=== PATIENT | female | born 1985 | race Caucasian/White ===

== ENCOUNTER → 2024-09-12 | Outpatient (CLI) | payer SELFPAY, OTHER ==
--- NOTE | 2024-09-12 18:34 | CT_ITS ---
EXAM: BRAIN/HEAD WITHOUT CONTRAST CLINICAL HISTORY: Pain COMPARISON: None. TECHNIQUE: Noncontrast images of the head with multiplanar reconstructions. Dose reduction techniques were used including intermediate exposure control (AEC),iterative reconstruction technique, and/or mA and/or KV dose adjustments based on patient's size. FINDINGS: CT HEAD FINDINGS: No acute intracranial hemorrhage, mass, mass effect, midline shift or pathologic extra-axial fluid collection. No hydrocephalus. Age- appropriate cerebral volume and white matter. Visualized paranasal sinuses and mastoid air cells are clear. The calvarium is grossly intact. CT/Brain/Head without Contrast IMPRESSION: No CT evidence of acute intracranial pathology. Reading [facility]
== END | disposition home or self-care (01) ==
LOC: CT 10-30 14:03
PROVIDERS: PCP Family Medicine; Referring Provider Surgery Plastic and Reconstructive Surgery; Visit Provider Surgery Plastic and Reconstructive Surgery
DX: D16.9 Benign neoplasm of bone and articular cartilage, unspecified (principal)
CPT/HCPCS: 70450

== ENCOUNTER 2024-09-29 12:55 | Emergency (ER) | payer OTHER, SELFPAY ==
[2024-09-29 12:56] VITALS: BP 119/80; PULSE 102; RESP 16; TEMP 36.7; O2SAT 100; BMI 28.1
[2024-09-29] MEDS: Famotidine 200 MG/20 ML MDV 20 MG in 0.9% Normal Saline (Pres. free 8 ML 300 MG IV (15:44)
[2024-09-29] MEDS: Ondansetron 4 MG/2 ML Vial IV (15:44)
[2024-09-29 15:46] LABS: Bacteria 0 SEEN /hpf (None Seen)
[2024-09-29 15:47] VITALS: BP 103/73; PULSE 75; RESP 16; TEMP 37.4; O2SAT 97
[2024-09-29 15:47] LABS: Absolute Lymphocyte Count 1.31 X10^3/uL (0.83-4.51); Absolute Neutrophil Count 5.4 X10^3/uL (2.0-7.7); Basophil# 0.05 X10^3/uL; Basophil% 0.7 % (0-1); Eosinophil# 0.02 X10^3/uL; Eosinophils% 0.3 % (0-5); Hematocrit 41.2 % (37-47); Hemoglobin 13.8 g/dL (12.0-15.0); Lymphocyte # 1.31 X10^3/ul (0.83-4.51); Mean Corp Hgb Conc 33.5 g/dL (32-36); Mean Corpuscular Hgb 27.9 pg (27.0-32.0); Mean Corpuscular Volume 83.4 fL (81-99); Mean Platelet Vol. 8.9 fl (6.2-12.0); Monocyte# 0.43 X10^3/uL; Monocyte% 5.9 % (0-10); NRBC Flagged by Analyzer 0 % (0-5); Neutrophil # 5.43 X10^3/uL (2.7-7.7); Neutrophil % 74.7 % (47-70); Platelet Count 290 K/mm3 (150-450); RBC Distribution Width CV 12.4 % (11.6-14.6); RBC Distribution Width SD 37.3 fl (35.1-43.9); Red Blood Count 4.94 M/mm3 (4.2-5.4); White Blood Count 7.3 K/mm3 (4.4-11.0)
[2024-09-29] MEDS: Lidocaine 2% Viscous15 ML UDC 15 ML PO (15:49)
[2024-09-29] MEDS: Mag Hydrox/Al Hydrox/Simeth 30 ML UDC PO (15:49)
[2024-09-29 15:57] LABS: Color, Urine Yellow (Yellow); Glucose, Dipstick Normal (Normal); Leukocyte Esterase-Dipstick Negative /ul (Negative); Nitrite-Dipstick Negative (Negative); Occult Blood-Urine 10 /ul (Negative); Protein-Dipstick 30 mg/dl (Negative); Specific Gravity, Urine 1.025 (1.002-1.030); Urine Bilirubin Dipstick Negative (Negative); Urine Clarity Clear (Clear); Urine Urobilinogen Normal (Normal)
[2024-09-29 16:06] LABS: Internal QC Validated? YES +Cl - CLEAR BKGD; Pregnancy, Serum, hCG Quali. NEGATIVE Negative
[2024-09-29 16:12] LABS: AST(SGOT) 14 U/L (15-37); Alanine Aminotransfer ALT/SGPT 16 U/L (13-56); Albumin, Serum 4.2 g/dL (3.2-5.0); Alkaline Phosphatase 65 U/L (45-117); Anion Gap 9 (5-15); BUN 15 mg/dL (7-18); BUN/Creat Ratio 16.6 RATIO (10-20); Calcium,Total 9.4 mg/dL (8.5-10.1); Chloride 108 mmol/L (98-107); EST Glomerular Filtration Rate 74 mL/min (>60); Est Glom Filt Rate - Afr Amer 90 mL/min (>60); Globulin 4.1 g/dL (2.2-4.2); Glucose 84 mg/dL (74-106); Potassium 3.8 mmol/L (3.5-5.1); Protein, Total 8.3 g/dL (6.4-8.2); Sodium Level 138 mmol/L (136-145)
[2024-09-29 16:45] LABS: Ketone-Dipstick 150 mg/dl (Negative)
[2024-09-29 16:55] LABS: Mucous, Urine 4+ /hpf (<or=2+); Squamous Epithelial Cells - UA 0-5 SEEN /hpf (5-10)
[2024-09-29 16:56] LABS: Red Blood Cells-Urine 0-5 SEEN /hpf (0-5); White Blood Cells 0-5 SEEN /hpf (0-5)
--- NOTE | 2024-09-29 16:59 | EX.ED.DYSGE1 ---
HPI History of Present Illness Chief Complaint: Abd Pain Detail of Chief Complaint: Epigastric pain for several months worse past several days Informant: patient Onset/Context/Timing Onset: Month(s) Context: Sudden Onset Timing: Intermittent Quality: Pain, heartburn, indigestion Location: Epigastrium Current Severity: Mild Maximum Severity: Moderate Worsened by: Food, lying down Relieved by: Nothing Associated Symptoms Associated Symptoms: No radiation, ultrasound performed at outside facility was interpreted as n Narrative Narrative: Patient is a 39-year-old woman. She had an ultrasound performed at outside facility that was interpreted by radiologist as negative. Patient was sent in by her doctor to have an emergent EGD. Patient denies hematemesis, melena or hematochezia. Patient emesis is bile in appearance. After further questioning is determined the patient has symptoms that are suggestive of GERD possible peptic ulcer disease. She denies pain rating through to her back. She denies weight gain or weight loss. She states she may have lost weight since Sunday since she has not had much of an appetite because it hurts when she eats. She denies cardiac or respiratory symptoms. She denies viral-like symptoms. Patient's last menses was 2 weeks ago. Patient is complains of nasal congestion for weeks. She denies postnasal drainage. She does complain of facial discomfort. There is no difference with change in position. She has had no fever or chills. Prior similar symptoms: Yes Recent Illness/Hospitalization: No PFSH PFSH Home Medications ?Medication ?Instructions ?Recorded ?Last Taken ?Type omeprazole 40 mg capsule,delayed 40 mg PO DAILY #30 caps 09/29/24 Unknown Rx release Allergy/AdvReac Type Severity Reaction Status Date / Time No Known Allergies Allergy Verified 09/18/24 10:46 Family History Father Heart disease Surgical History History of delivery Social History (Updated 09/29/24 @ 17:[address] Andry Doyle MD) household members: spouse and children Smoking Status: Never smoker ROS ROS ED Constitutional Constitutional ED: Denies chills, fever(s), subjective or sweats ENT ENT ED: Reports other Details: Sinus congestion for weeks. ; Denies ear pain, rhinorrhea or sore throat Cardiovascular Cardiovascular: Denies chest pain or palpitations Respiratory/Chest Respiratory/Chest: Denies cough, dyspnea or dyspnea on exertion Gastrointestinal Gastrointestinal: Reports abdominal pain, nausea and vomiting; Denies constipation, diarrhea or melena Genitourinary Genitourinary ED: Denies dysuria, hematuria or urinary frequency Musculoskeletal Musculoskeletal: Denies back pain or neck pain Integumentary Denies rash Endocrine Endocrinology: Denies cold intolerance or heat intolerance Hematologic/Lymphatic Hematologic/Lymphatic: Reports systems reviewed and no addt'l complaints, except as documented EXAM Physical Exam Const Vital Signs: 09/29/24 12:56 09/29/24 15:47 Temperature 98.1 F 99.3 F H Temperature Source Temporal Oral Pulse Rate 102 H 75 Respiratory Rate 16 16 Blood Pressure 119/80 103/73 Blood Pressure Mean 93 83 Pulse Ox 100 97 Oxygen Delivery Method Room Air Room Air Positive well nourished and well developed General Appearance ED: well developed and NAD HEENT Reports moist mucous membranes HEENT Narrative: Head is atraumatic no cephalic. Ears normal. Nares patent. Patient has clear to colored drainage in her nose. There are some boggy mucosa. There is areas of irritation and probably because of her intermittent nosebleeds. There is no tenderness over the frontal, ethmoid or maxillary sinuses. Posterior pharynx is normal. Eyes PERRL and EOMs intact bilaterally General Eye ED: Negative for pale conjunctiva or scleral icterus Neck no lymphadenopathy, supple and no JVD Chest Wall inspection of chest normal and palpation of chest normal Resp normal respiratory effort and clear to auscultation bilaterally Cardio regular rate, regular rhythm, S1 normal heart sound, S2 normal heart sound and no murmurs GI normal to inspection, nondistended, normoactive bowel sounds, non-distended and no masses; Negative for non-tender or hepatosplenomegaly GI Narrative: Negative clinical Lainez sign. Palpation: soft and tender epigastric Back/Spine no CVA tenderness Extremity normal to inspection Neuro oriented x3 and CN's II-XII intact bilaterally Sensorium / Orientation: alert Psych mental status grossly normal Skin no rashes or lesions noted, no wounds and skin turgor normal MDM MDM MDM Narrative Medical decision making narrative: Differential diagnosis is reflux, hiatal hernia, peptic ulcer disease. Nurse protocol orders were entered. CBC was obtained to assess H&H since there is concerned that this may represent peptic ulcer disease. Also BMP was obtained to assess BUN to creatinine ratio and renal function. UA was obtained to assess for bilirubin, urobilinogen and specific gravity. Since she has not eaten 1 would expect that she has ketones in her urine. Patient was treated with IV Pepcid and GI cocktail. She reports marked improvement. Lab Data Attestation: I reviewed the patient's lab results. Lab results narrative: CBC is unremarkable. There is slight increased neutrophil count. Electrolyte panel with slight elevation of chloride of 108. Liver enzymes are normal. Urinalysis is remarkable for ketones sensitive gravity 1.025. Labs: Laboratory Results - last 24 hr 09/29/24 15:30 WBC 7.3 RBC 4.94 Hgb 13.8 Hct 41.2 MCV 83.4 MCH 27.9 MCHC 33.5 RDW Std Deviation 37.3 RDW Coeff of Bruno 12.4 Plt Count 290 MPV 8.9 Immature Gran % (Auto) 0.400 Neut % (Auto) 74.7 H Lymph % (Auto) 18.0 L Sebastian % (Auto) 5.9 Eos % (Auto) 0.3 Baso % (Auto) 0.7 Absolute Neuts (auto) 5.4 Absolute Lymphs (auto) 1.31 Nucleated RBC % 0 Sodium 138 Potassium 3.8 Chloride 108 H Carbon Dioxide 21.0 Anion Gap 9 BUN 15 Creatinine 0.90 Estim Creat Clear Calc 82.90 Est GFR (MDRD) Af Amer 90 Est GFR (MDRD) Non-Af 74 BUN/Creatinine Ratio 16.6 Glucose 84 Calcium 9.4 Total Bilirubin 0.50 AST 14 L ALT 16 Alkaline Phosphatase 65 Total Protein 8.3 H Albumin 4.2 Globulin 4.1 Albumin/Globulin Ratio 1.0 Serum , Qual NEGATIVE Urine Color Yellow Urine Clarity Clear Urine pH 5.0 Ur Specific Rothschild 1.025 Urine Protein 30 H Urine Glucose (UA) Normal Urine Ketones 150 A* Urine Occult Blood 10 H Urine Nitrite Negative Urine Bilirubin Negative Urine Urobilinogen Normal Ur Leukocyte Esterase Negative Urine RBC 0-5 SEEN Urine WBC 0-5 SEEN Ur Squamous Epith Cells 0-5 SEEN Urine Bacteria 0 SEEN Urine Mucus 4+ Treatment and Re-Evaluation :: As previously documented improvement with GI cocktail and Pepcid. Will discharge with prescription for PPI. Discharge Plan Triage Chief Complaint: Abd Pain ED Provider: VivekAndry Dx/Rx/DC Orders Clinical Impression: Acute epigastric pain, Acute dehydration, Ketosis Instructions: GERD Lifestyle Changes, ED GERD (Adult), ED Epigastric Pain Uncertain Cause Prescriptions: New omeprazole 40 mg capsule,delayed release(DR/EC) 40 mg PO DAILY Qty: 30 0RF Primary Care Provider: Trell Navarro Referrals: Trell Navarro MD [Primary Care Provider] - 1 Week if not improving Print Language: Bahamian Disposition Disposition: Home, Self Care
[2024-09-29 17:13] VITALS: BP 101/77; PULSE 71; RESP 16; TEMP 37.2; O2SAT 99
== END 2024-09-29 17:14 | disposition home or self-care (01) ==
PROVIDERS: Emergency Provider Emergency Medicine; PCP Family Medicine; Referring Provider Emergency Medicine; Visit Provider Emergency Medicine
DX: R10.13 Epigastric pain (principal); E88.89 Other specified metabolic disorders; E86.0 Dehydration
CPT/HCPCS: 80048; 80053; 81001; 84703; 85025; 96374; 96375; 99283; A4216; J2405

== ENCOUNTER 2024-11-05 05:32 | Day surgery (SDC) | payer SELFPAY, OTHER ==
[2024-11-05] VITALS (7 sets, daily range): BP systolic 109–115; BP diastolic 65–77; PULSE 78–114; RESP 16–20; TEMP 36.3–36.6; O2SAT 99–100; BMI 24.2
[2024-11-05] MEDS: 0.9% Normal Saline (1000mL) 1,000 ML 15 ML IV (06:14)
--- NOTE | 2024-11-05 07:02 | PRE.ANES_ITS ---
ASA Classification* ASA Classification ASA Classification: 2 Assessment & Plan Anesthesia* Anesthesia Assessment Anesthesia Assessment: Discussed sedation and/or anesthesia options, risks, benefits, and alternatives with patient/parents/legal guardian/POA. Questions invited. The patient/parents/legal guardian/POA seems to understand and agrees to proceed with anesthesia plan. Reviewed the physical assessment, medical history, allergy history and patient home medications list prior to surgery/procedure/anesthetic and documented any changes. Performed airway and anesthesia risk assessments. Anesthesia Type Anesthesia Type: General Anesthesia Focused Assessment* Temperature: 97.8 F Pulse Rate: 78 Blood Pressure: 112/77 Respiratory Rate: 16 Pulse Ox: 100 Airway Assessment Mouth opens: >3 cm Mallampati Score: II Focused Labs Anesthesia Preop lab: CBC WBC 7.3 K/mm3 (4.4-11.0) 09/29/24 15:09/29/24 RBC 4.94 M/mm3 (4.2-5.4) 09/29/24 15:09/29/24 Hgb 13.8 g/dL (12.0-15.0) 09/29/24 15:30 09/29/24 Hct 41.2 % (37-47) 09/29/24 15:30 09/29/24 Plt Count 290 K/mm3 (150-450) 09/29/24 15:30 09/29/24 CHEMISTRY Potassium 3.8 mmol/L (3.5-5.1) 09/29/24 15:30 09/29/24 Sodium 138 mmol/L (136-145) 09/29/24 15:30 09/29/24 BUN 15 mg/dL (7-18) 09/29/24 15:30 09/29/24 Creatinine 0.90 mg/dL (0.55-1.02) 09/29/24 15:30 09/29/24 Glucose 84 mg/dL (74-106) 09/29/24 15:30 09/29/24 COAG Pre-Assessment Diagnosis/Proposed Procedure Planned Operative Procedure(s): excision of forehead osteoma Anesthesia History Anesthesia History - facility specialist: Anesthesia History - facility specialist Hx Hospitalization No 10/24/24 08:33 Any Problems With Anesthesia No 10/24/24 08:33 Cholinesterase deficiency No 10/24/24 08:33 You/Your Family Experience No 10/24/24 08:33 fever (hyperthermia) with Relationship Recent Exposure to Contagious No 11/05/24 06:07 Disease Does patient have nerve No 10/24/24 08:33 stimulator Patient instructed to have device shut off --Does patient have Pacemaker No 11/05/24 06:07 or ICD? When Was Last Pacemaker Check QUESTION #4 FULL TEXT: You/Your Family Experience fever (hyperthermia) with Anesthesia Last Oral Intake Last Oral intake: Last Oral Intake NPO since 00:00 11/05/24 06:07 Meds taken in AM with sips of No 11/05/24 06:07 water? Meds patient instructed to take am of surgery PONV PONV - facility specialist: PONV - facility specialist Female Yes 10/24/24 08:33 HX of Motion Sickness Yes 10/24/24 08:33 HX of N/V After Surgery Yes 10/24/24 08:33 Non-Smoker Yes 10/24/24 08:33 Duration of Surgery greater No 10/24/24 08:33 than 60 minutes Number of Risk Factors 4 10/24/24 08:33 PONV Score Severe Risk 10/24/24 08:33 Height & Weight Height & Weight: Anesthesia: Height & Weight Height 5 ft 5 in 11/05/24 06:07 Weight: 66 kg 11/05/24 06:07 Body Mass Index (BMI) 24.2 11/05/24 06:07 Respiratory Assessment Respiratory Assessment - facility specialist: Respiratory Tract Infection Hx - facility specialist Hx Respiratory Tract Infection No 10/24/24 08:33 STOP Sleep Apnea STOP Sleep Apnea - facility specialist: STOP Sleep Apnea - facility specialist Hx Hypertension No 10/24/24 08:33 Hx Sleep Apnea No 10/24/24 08:33 CPAP BIPAP Do you snore loudly (louder No 10/24/24 08:33 than talking or can be heard Do you often feel tired/ No 10/24/24 08:33 fatigued/ sleepy during daytime? Has anyone observed you stop No 10/24/24 08:33 breathing during sleep? STOP Results Negative 10/24/24 08:33 QUESTION #5 FULL TEXT : Do you snore loudly (louder than talking or can be heard through closed doors)? 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 Specify any problems Hx of Preganancy in last 3 No 10/24/24 08:33 Months Nurse Filling Out Transfusion JZOLLINGE 10/24/24 08:33 & Questions: Date: 10/24/24 10/24/24 08:33 Time: 08:39 10/24/24 08:33 Patient unable to answer at this time (ie. confused, unrespo /Reproduction History /Reproductive History - facility specialist: /Reproductive Hx- facility specialist Hx Now No 10/24/24 08:33 Gestational Age (in weeks): EDC: Hx Hx Para Hx Section SAB No 10/24/24 08:33 Active Medications Active Medications: Current Medications Generic Name Dose Route Start Last Admin Trade Name Freq PRN Reason Stop Dose Admin Cefazolin Sodium 2 gm/ N/A 20 mls @ 400 mls/hr 11/05/24 07:30 IV 11/05/24 07:32 PREOP ONE Sodium Chloride 1,000 mls @ 15 mls/hr 11/05/24 05:50 11/05/24 06:14 IV 15 mls/hr .Q48H MATIAS Administration PFSH Medical History Wears glasses Dietary restriction History of hiatal hernia Non-smoker Home Medications ?Medication ?Instructions ?Recorded ?Last Taken ?Type NK 10/24/24 Unknown History Allergy/AdvReac Type Severity Reaction Status Date / Time No Known Allergies Allergy Verified 10/24/24 08:25 Family History Father Heart disease Surgical History History of delivery Social History (Updated 09/29/24 @ 17:[address] Andry Doyle MD) household members: spouse and children Smoking Status: Never smoker Review of Systems (Anesthesia) ROS Narrative System reviewed and no additional complaints, except as documented.
--- NOTE | 2024-11-05 07:30 | LES_PTH ---
PATIENT: ANDREINA DHILLON LOC: [facility] U#:[id number] AGE/SX: 39/F ROOM: RE11/05/[address]: Dr. Tello Garrido MD : 1985 BED: DIS: 11/05/2024 SPEC #: [id number] RECD: 11/05/24 09:26 STATUS: MARTHA BYRON #: [id number] TEMI: 11/05/24 07:[address]: Tello Garrido DEPT: SURGICAL PATHOLOGY RECD BY: Kleber Enrique ENTERED: 11/05/24 09:26 SP TYPE: Lesion OTHR DR: Dr. Trell Navarro MD Tissues: A - Forehead, NOS Procedures: Decalcification bone/plaque Surgery Specimen Level IV HEADER OPERATION: Excision of forehead osteoma PRE-OP DIAGNOSIS: Osteoma TISSUE SUBMITTED: A- Forehead osteoma MICROSCOPIC DIAGNOSIS A. BONE, FOREHEAD, OSTEOMA, EXCISION: - MULTIPLE FRAGMENTS OF CORTICAL BONE WITH SCANT ATTACHED FIBROUS TISSUE - SEE NOTE. Note: The histologic findings are consistent with the clinical impression of osteoma. MICROSCOPIC DESCRIPTION Slides are reviewed. GROSS DESCRIPTION A. Received in formalin labeled, Andreina Dhillon, and designated forehead osteoma, are multiple pink-reyes, ragged, irregularly-shaped, bony tissue fragments that aggregate to 3.5 x 3.5 x 0.2 cm. The fragments are entirely submitted in two cassettes after decalcification. 11/05/2024 CPT:34423,90349
--- NOTE | 2024-11-05 07:34 | PCM.HP.STD ---
HPI - General HPI Narrative Pt is a 38 yr old referred here for a lesion on her forehead by [facility] dermatology. Pt states she has had the spot for approx 10 years. Getting larger slowly. Denies any pain. Pt does not have any clot history or family clot history. Pt is a nonsmoker and does not vape or use alcohol. Current encounter, 18 September 2024: Patient doing well. Here to discuss CT results. No change in the mass. Current Encounter (DATE OF SURGERY H&P UPDATE): I saw and examined the patient this morning in pre-operative holding. We discussed risks and benefits of today's surgery and they would like to proceed. Patient had laparoscopic hiatal hernia surgery 5 weeks ago and has been recovering uneventfully. Ready to proceed with surgery. [facility] Medical History Wears glasses Dietary restriction History of hiatal hernia Non-smoker Home Medications ?Medication ?Instructions ?Recorded ?Last Taken ?Type NK 10/24/24 Unknown History Allergy/AdvReac Type Severity Reaction Status Date / Time No Known Allergies Allergy Verified 10/24/24 08:25 Family History Father Heart disease Surgical History History of delivery Social History household members: spouse and children Smoking Status: Never smoker Vital Signs Vital Signs Vital Signs: 11/05/24 06:07 11/05/24 06:07 11/05/24 07:03 Temperature 97.8 F 97.8 F Temperature Source Temporal Pulse Rate 78 78 Respiratory Rate 16 16 Respiratory Pattern Normal Blood Pressure 112/77 112/77 Blood Pressure Mean 88 Blood Pressure Source Monitor Blood Pressure Position Semi-Fowlers Blood Pressure Location Right Arm Pulse Ox 100 100 Oxygen Delivery Method Room Air Weight Weight: 145 lb 8.081 oz Body Mass Index (BMI) 24.2 Physical Exam Narrative Left upper forehead firm, fixed mass, consistent with a 2 x 2 cm osteoma just underneath the hair line She does not have any neck lymphadenopathy Assessment & Plan Assessment/Plan (1) Osteoma: PLAN: INTERVAL H&P PLAN, DATE OF SURGERY: We will proceed with surgery today (patient chose excision) I discussed with the patient the results of the CT scan and my read with Dr. Garcia (osteoma, outer table). She understands the risks, benefits and alternatives to removal. I talked her extensively about damage to surrounding structures including skull fractures and bleeding. We talked about contour abnormalities. We talked about failure to obtain the desired result and need for repeat operations. I talked to her about recurrence of the osteoma. I talked to her about posibility that it does not appear to be an osteoma and if coming from the skull, we might abort operation and close and send to a center with a neurosurgeon. She and her were in agreement with this plan. We talked about infection. We talked about poor scarring. We talked about the risks of anesthesia including DVT/PE, stroke and . Caprini score is 1
[2024-11-05] MEDS: Cefazolin 2 GM in Syringe IV (07:40)
[2024-11-05] MEDS: Lidocaine 1% /Epi 1:100 (20ml) 20 ML Vial ×2 (08:30)
[2024-11-05] MEDS: Bupiv/Epi 0.25% 30 ML Vial (08:30)
--- NOTE | 2024-11-05 08:44 | PCM.POST.ANE ---
Anesthesia: Postop Eval I Current Vital Signs Temperature: 974 F Pulse Rate: 114 Blood Pressure: 115/71 Respiratory Rate: 20 Pulse Ox: 99 Oxygen Delivery Method: Room Air Assessment Airway patent: Yes Spontaneous unlabored respirations: Yes Mental status: Confused nausea: No Vomiting: No Anesthesia Complication: No Fluid Hydration Crystalloid volume administer (ml): 800 Total IV fluid infused: 800 Progress Note Anesthesia document: Postop Eval 1 completed: Yes
--- NOTE | 2024-11-05 09:00 | OP.PCM_ITS ---
Operative Report (Standard) Operative Information Date of Procedure: 11/05/24 Pre-Operative Diagnosis: Osteoma, foreahead Post-Operative Diagnosis: Same Surgery/Procedure Performed: 1) Excision of forehead osteoma, 1.5 x 1.5 cm (CPT: 46630) 2) 4 cm intermediate closure, forehead (CPT: 75813) bandoleer straightener stamper: Yes Residential Insurance Inspector: Vera Clark Tasks completed by observation assistant: Retracting Type of Anesthesia: General/Supplemental (5 cc of a 50/50 mixture of 1% lidocaine with 1:200,000 epinephrine and 0.25%Marcaine with 1:200,000 epinephrine) RN Documented Start/Stop Times: Operation Date: 11/05/24 07:30 Case Time Into Pre-Op 11/05/24 05:47 Out of Pre-Op 11/05/24 07:34 Anesthesia Start 11/05/24 07:37 Into Room 11/05/24 07:37 Procedure Start 11/05/24 08:03 Procedure End 11/05/24 08:31 Anesthesia End 11/05/24 08:35 Out of Room 11/05/24 08:35 Into Recovery 11/05/24 08:37 Out of Recovery 11/05/24 09:00 Into Phase II Recovery 11/05/24 09:01 Procedure Start Time: 08:03 Procedure Stop Time: 08:31 Select all DRAINS/GRAFTS/IMPLANTS that apply: None Estimated Blood Loss: 5 cc Specimen collected: Yes Description of specimen(s) removed: Forehead osteoma Description of surgery: Indications: Patient is a 39 YO female who has a forehead osteoma that was marked in preoperative holding. CT imaging demonstrated likely osteoma. She presents today for excision and understands the risks, benefits, and alternatives and elected to proceed. Procedure details: Patient was correctly identified in preoperative holding and marked. She was in agreement with the site marking. She was taken back to the operating room where she was administered general anesthesia with an LMA. She was prepped and draped in sterile fashion and all proper timeouts were performed. The above-noted solution of local was injected and given time to take effect. A 15 blade scalpel was used to make an incision in an existing forehead crease near the scalp line. Dissection was carried out carefully with Bovie electrocautery down to the forehead osteoma. It was dissected circumferentially with a [place] elevator removing some of the periosteal tissue. The osteoma was well-circumscribed and was excised at the base using a straight osteotome and a mallet. It was sent to pathology. It measured 1.5 x 1.5 cm. This improved the frontal bone contour via excision with osteotome. The wound was irrigated with copious amounts normal saline as well as Irrisept (100 cc). Hemostasis obtained with Bovie electrocautery. The wound was closed in layers (4 cm closure total) with 3-0 PDS for the galea followed by 4-0 Monocryl deep dermal sutures followed by running subcuticular 4-0 Monocryl with Steri-Strips. Patient was awakened and taken the PACU in stable condition and tolerated the procedure well. Postoperative plan: Follow-up in 1 week to review pathology and for wound check. Keep Steri-Strips dry until then. Surgical Findings: Osteoma that was well defined and came off of the outer table of the skull with an osteotome. Complications Complications: No Admit VTE Documentation VTE Mechan Device Prophylaxis: SCD's
--- NOTE | 2024-11-05 09:05 | POSTOPAN2_ITS ---
Anesthesia Postop Eval I Sum Postop Eval Completion status Anesthesia document: Postop Eval 1 completed: Yes Anesthesia Postop Eval I Summary Anesthesia Postop Eval I Summary: Anesthesia Postop Eval I: Assessment Summary Airway patent Yes 11/05/24 08:45 SENIOR ENGINEERING [email or web address] Spontaneous unlabored Yes 11/05/24 08:45 SENIOR ENGINEERING [email or web address] respirations Mental status Confused 11/05/24 08:45 SENIOR ENGINEERING [email or web address] nausea No 11/05/24 08:45 SENIOR ENGINEERING [email or web address] Vomiting No 11/05/24 08:45 SENIOR ENGINEERING [email or web address] Anesthesia Postop Eval I: Fluid Summary Crystalloid volume administer 800 11/05/24 08:45 SENIOR ENGINEERING [email or web address] (ml) Colloids volume administered ( ml) Blood Product volume administered (ml) Total IV fluid infused 800 11/05/24 08:45 SENIOR ENGINEERING [email or web address] Anesthesia Postop Eval I: Summary Notes Anesthesia Complication No 11/05/24 08:45 SENIOR ENGINEERING [email or web address] Anesthesia Complication Comment: Post-operative progress note Anesthesia: Postop Eval II Evaluation Mental status: Awake Pain Level: 1 nausea: No Vomiting: No
--- NOTE | 2024-11-05 09:05 | PCM.POSTANE2 ---
Anesthesia Postop Eval I Sum Postop Eval Completion status Anesthesia document: Postop Eval 1 completed: Yes Anesthesia Postop Eval I Summary Anesthesia Postop Eval I Summary: Anesthesia Postop Eval I: Assessment Summary Airway patent Yes 11/05/24 08:45 BOILER [email or web address] Spontaneous unlabored Yes 11/05/24 08:45 BOILER [email or web address] respirations Mental status Confused 11/05/24 08:45 BOILER [email or web address] nausea No 11/05/24 08:45 BOILER [email or web address] Vomiting No 11/05/24 08:45 BOILER [email or web address] Anesthesia Postop Eval I: Fluid Summary Crystalloid volume administer 800 11/05/24 08:45 BOILER [email or web address] (ml) Colloids volume administered ( ml) Blood Product volume administered (ml) Total IV fluid infused 800 11/05/24 08:45 BOILER [email or web address] Anesthesia Postop Eval I: Summary Notes Anesthesia Complication No 11/05/24 08:45 BOILER [email or web address] Anesthesia Complication Comment: Post-operative progress note Anesthesia: Postop Eval II Evaluation Mental status: Awake Pain Level: 1 nausea: No Vomiting: No
== END 2024-11-05 10:13 | disposition home or self-care (01) ==
LOC: SDC 05:33 → AC 05:34
PROVIDERS: PCP Family Medicine; Referring Provider Surgery Plastic and Reconstructive Surgery; Visit Provider Surgery Plastic and Reconstructive Surgery
PROC: (CPT 21026; principal; 2024-11-05 07:15)
DX: D16.4 Benign neoplasm of bones of skull and face (principal)
CPT/HCPCS: 21026; 12052; 00190; 88305; 88311; J2405